=== PATIENT | female | born 1970 | race Caucasian/White ===

== ENCOUNTER 2022-01-12 18:04 | Emergency (ER) | payer OTHER ==
[2022-01-12 19:50] LABS: Absolute Neutrophil Ct (ANC) 4.71 x10^3/uL (1.4-6.9); Basophil (Absolute #) 0.06 x10^3/uL (0-0.4); Eosinophil % 1.9 % (0.00-5.0); Eosinophil (Absolute #) 0.15 x10^3/uL (0-0.5); Hematocrit 38.5 % (35-47); Hemoglobin 12.6 g/dL (12.0-16.0); Lymphocyte (Absolute #) 2.56 x10^3/uL (1.0-4.6); Lymphocytes % 31.6 % (24.0-44.0); Mean Cell Volume 91.4 fL (78-100); Mean Corpuscular Hemoglobin 29.9 pg (26-32); Mean Corpuscular Hgb Concent. 32.7 g/dL (32-36); Mean Platelet Volume 9.9 fL (7.5-11.0); Monocyte (Absolute #) 0.57 x10^3/uL (0.0-1.3); Neutrophil % 58.3 % (36.0-66.0); Platelet Count 314 x10^3/uL (150-450); Red Blood Count 4.21 x10^6/uL (4.1-5.4); Red Cell Distribution Width 11.9 % (11.5-14.0); White Blood Count 8.1 x10^3/uL (4.0-10.5)
[2022-01-12 19:51] LABS: Mucus SLIGHT /HPF (NEGATIVE); WBC 0-2 /HPF (0-5)
[2022-01-12 19:52] LABS: Appearance CLEAR (CLEAR); Bilirubin NEGATIVE (NEGATIVE); Glucose NEGATIVE (NEGATIVE); Ketones NEGATIVE (NEGATIVE); Ph 5.5 (5-6); RBC NEGATIVE Ery/ul (0-5); Specific Gravity <=1.005 (1.005-1.025)
[2022-01-12 19:53] LABS: Nitrite NEGATIVE (NEGATIVE); Protein,Urine Dip NEGATIVE (Negative); Urine Cultured Indicated? NO; Urobilinogen 0.2 mg/dL (0-1)
[2022-01-12 20:03] LABS: Dipstick done @ ? MAIN LAB
[2022-01-12 20:08] LABS: ALBUMIN 4.1 g/dL (3.5-5.0); ANION GAP 11.8 MEQ/L (5-15); BILIRUBIN,TOTAL 0.5 mg/dL (0.2-1.3); Calcium 9.9 mg/dL (8.4-10.2); Creatinine 1 1.33 mg/dL (0.52-1.04); EST GLOMERULAR FILTRATION RATE 44.5 ML/MIN; Potassium 3.9 mmol/L (3.5-5.1); Total Protein 7.1 g/dL (6.3-8.2)
[2022-01-12 20:20] VITALS: O2SAT 98
--- NOTE | 2022-01-12 20:38 | ERPHSYRPT ---
- History of Present Illness Historian: patient Exam Limitations: no limitations Patient Subjective Stated Complaint: pt states "My stomach has been hurting really intene the past 3 days. I have IBS so I don't know if it that or not. about 3 weeks ago I passed what looked like a worm in my stool." Triage Nursing Assessment: Pt ambulatory to bed by self, pt alert and oriented x3, pt c/o diffuse abd pain x3 days, pt has hx of IBS but states "It doesn't feel like that kind of pain." pt mentioned about 3 weeks ago she passed stool and said it looked like it had a "Worm" in it, pt's last BM was two days ago with no abnormalities, pt slightly hypertensive in triage, skin pwd, other vitals wnl Physician History: 51 yo wf w periumbilical pain x 3 days. Pain is 8/10, sharp, and wo radiation. She has had nausea wo vomiting/diarrhea/melena/hemat ochezia/fever/dysuria/hematuria. Pt has a h/o IBS w constipation but has had good BM's. Timing/Duration: other (3 days) Activities at Onset: rest Quality: sharpness Abdominal Pain Onset Location: periumbilical Pain Radiation: no radiation Severity of Pain-Max: severe Severity of Pain-Current: severe Associated Symptoms: denies symptoms, nausea Previous symptoms: same symptoms as today Allergies/Adverse Reactions: pravastatin Allergy (Verified 08/28/15 00:43) steriods Allergy (Uncoded 01/12/22 19:18) IV contrast dye Adverse Reaction (Uncoded 08/28/15 01:05) due to kidney disease Home Medications: Levothyroxine Sodium [Synthroid] 75 mcg PO DAILY 11/02/13 [History] Cyanocobalamin (Vitamin B-12) [Vitamin B-12] 1 cartridge IM UD 03/01/15 [History] Bisacodyl 5 mg [Dulcolax 5 mg] 10 mg PO .2-3DAYS 08/17/16 [History] Diphenhydramine HCl 25 mg [Benadryl 25 mg Capsule] 50 mg PO HS 08/17/16 [History] Hydrocodone/Acetaminophen [Iraan 7.5-325 Tablet] 1 each PO Q6-8HPRN PRN 08/17/16 [History] Potassium Chloride 7.5 meq PO DAILY 08/22/17 [History] Ezetimibe 10 mg [Zetia 10 MG] 10 mg PO DAILY 09/25/17 [History] Hx Tetanus, Diphtheria Vaccination/Date Given: Yes Hx Influenza Vaccination/Date Given: No Hx Pneumococcal Vaccination/Date Given: No Immunizations Up to Date: Yes Travel Risk - International Travel Have you traveled outside of the country in past 3 weeks: No - Coronavirus Screening Are you exhibiting any of the following symptoms?: No Close contact with a COVID-19 positive Pt in past 14-21 Days: No - Vaccine Status Have you recieved a Covid-19 vaccination: No - Review of Systems Constitutional: No Symptoms Eyes: No Symptoms Ears, Nose, & Throat: No Symptoms Respiratory: No Symptoms Cardiac: No Symptoms Abdominal/Gastrointestinal: No Symptoms, Abdominal Pain, Nausea, No Vomiting, No Diarrhea, No Constipation Genitourinary Symptoms: No Symptoms Musculoskeletal: No Symptoms Skin: No Symptoms Neurological: No Symptoms Psychological: No Symptoms Endocrine: No Symptoms Hematologic/Lymphatic: No Symptoms Immunological/Allergic: No Symptoms - Past Medical History Pertinent Past Medical History: Yes Neurological History: No Pertinent History ENT History: No Pertinent History Cardiac History: High Cholesterol Respiratory History: Asthma Endocrine Medical History: Hypothyroidism Musculoskeletal History: Arthritis, Fibromyalgia GI Medical History: No Pertinent History, Irritable Bowel History: Renal Disease Psycho-Social History: Anxiety, Bipolar, Depression Female Reproductive Disorders: No Pertinent History Other Medical History: Mitral valve prolapse (mild) - Past Surgical History Past Surgical History: Yes Neuro Surgical History: No Pertinent History Cardiac: No Pertinent History Respiratory: No Pertinent History Gastrointestinal: Cholecystectomy Genitourinary: No Pertinent History Musculoskeletal: No Pertinent History Female Surgical History: Hysterectomy, Tubal Ligation Other Surgical History: THYROIDECTOMY IN 2003 - Social History Smoking Status: Never smoker How long have you smoked: 30 years Exposure to second hand smoke: Yes Drug Use: none Patient Lives Alone: No Significant Family History: no pertinent family hx - Nursing Vital Signs Nursing Vital Signs: Initial Vital Signs Temperature 98.7 F 01/12/22 19:19 Pulse Rate 79 01/12/22 19:19 Respiratory Rate 18 01/12/22 19:19 Blood Pressure 131/94 01/12/22 19:19 O2 Sat by Pulse Oximetry 99 01/12/22 19:19 Pain Scale Pain Intensity 4 Mildly hypertensive - Physical Exam General Appearance: no apparent distress Eye Exam: PERRL/EOMI, eyes nml inspection Ears, Nose, Throat Exam: normal ENT inspection, TMs normal, pharynx normal, moist mucous membranes Neck Exam: normal inspection, non-tender, supple, full range of motion, No meningismus, No mass, No Brudzinski, No Kernig's Respiratory Exam: normal breath sounds, lungs clear, airway intact Cardiovascular Exam: regular rate/rhythm, normal heart sounds, normal peripheral pulses, capillary refill <2 sec, No murmur Gastrointestinal/Abdomen Exam: soft, normal bowel sounds, tenderness (Moderate periumbilical TTP wo guarding or rebound) Back Exam: normal inspection, normal range of motion, No CVA tenderness Extremity Exam: normal inspection, normal range of motion Neurologic Exam: alert, oriented x 3, cooperative, 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, normal mood/affect, nml cerebellar function, nml station & gait, sensation nml Skin Exam: normal color, warm, dry, No rash Lymphatic Exam: No adenopathy SpO2 Interpretation: normal SpO2: 98 O2 Delivery: Room Air - Course Nursing assessment & vital signs reviewed: Yes - CT Exams Abdomen/Pelvis CT Interpretation: Discussed w/radiologist (2.5cm calcified R renal mass) Ordered Tests: Active Orders 24 hr Category Date Time Status ABDOMEN AND PELVIS W/0 CONTRAS [CT] Stat Exams 01/12/22 20:37 Taken AMYLASE Stat Lab 01/12/22 19:46 Completed CBC W DIFF Stat Lab 01/12/22 19:46 Completed CMP Stat Lab 01/12/22 19:46 Completed LIPASE Stat Lab 01/12/22 19:46 Completed TROPONIN Q3H Lab 01/12/22 19:46 Completed UA W/RFX CULTURE Stat Lab 01/12/22 19:42 Completed Medication Summary Discontinued Medications Generic Name Dose Route Start Last Admin Trade Name Freq PRN Reason Stop Dose Admin Fentanyl Citrate 50 mcg 01/12/22 20:36 01/12/22 20:47 Fentanyl Citrate 100 Mcg/2 Ml* Vial IV 01/12/22 20:37 50 mcg STAT ONE Administration Fentanyl Citrate Confirm 01/12/22 20:46 Fentanyl Citrate 100 Mcg/2 Ml* Vial Administered 01/12/22 20:47 Dose 100 mcg .ROUTE .STK-MED ONE Ondansetron HCl 4 mg 01/12/22 20:37 01/12/22 20:47 Ondansetron Hcl 4 Mg/2 Ml Vial IV 01/12/22 20:38 4 mg STAT ONE Administration Ondansetron HCl Confirm 01/12/22 20:45 Ondansetron Hcl 4 Mg/2 Ml Vial Administered 01/12/22 20:46 Dose 4 mg .ROUTE .STK-MED ONE Lab/Rad Data: Laboratory Result Diagrams 01/12/22 19:46 01/12/22 19:46 Laboratory Results 01/12/22 01/12/22 01/12/22 Range/Units 19:46 19:46 19:46 WBC 8.1 (4.0-10.5) x10^3/uL RBC 4.21 (4.1-5.4) x10^6/uL Hgb 12.6 (12.0-16.0) g/dL Hct 38.5 (35-47) % MCV 91.4 (78-100) fL MCH 29.9 (26-32) pg MCHC 32.7 (32-36) g/dL RDW 11.9 (11.5-14.0) % Plt Count 314 (150-450) x10^3/uL MPV 9.9 (7.5-11.0) fL Gran % 58.3 (36.0-66.0) % Immature Gran % (Auto) 0.5 H (0.00-0.4) % Nucleat RBC Rel Count 0.0 (0.00-0.1) % Eos # (Auto) 0.15 (0-0.5) x10^3/uL Immature Gran # (Auto) 0.04 H (0.00-0.03) x10^3u/L Absolute Lymphs (auto) 2.56 (1.0-4.6) x10^3/uL Absolute Monos (auto) 0.57 (0.0-1.3) x10^3/uL Absolute Nucleated RBC 0.00 (0.00-0.01) x10^3u/L Lymphocytes % 31.6 (24.0-44.0) % Monocytes % 7.0 (0.0-12.0) % Eosinophils % 1.9 (0.00-5.0) % Basophils % 0.7 (0.0-0.4) % Absolute Granulocytes 4.71 (1.4-6.9) x10^3/uL Basophils # 0.06 (0-0.4) x10^3/uL Sodium 140 (137-145) mmol/L Potassium 3.9 (3.5-5.1) mmol/L Chloride 107 (98-107) mmol/L Carbon Dioxide 25 (22-30) mmol/L Anion Gap 11.8 (5-15) MEQ/L BUN 14 (7-17) mg/dL Creatinine 1.33 H (0.52-1.04) mg/dL Estimated GFR 44.5 ML/MIN Glucose 107 H (74-106) mg/dL Calcium 9.9 (8.4-10.2) mg/dL Total Bilirubin 0.50 (0.2-1.3) mg/dL AST 25 (14-36) U/L ALT 14 (0-35) U/L Alkaline Phosphatase 51 (38-126) U/L Troponin I < 0.012 (0.000-0.034) ng/mL Serum Total Protein 7.1 (6.3-8.2) g/dL Albumin 4.1 (3.5-5.0) g/dL Amylase 72 (30-110) U/L Lipase 121 (23-300) U/L Urinalys Dipstick Clnc Urine Color (YELLOW) Urine Appearance (CLEAR) Urine pH (5-6) Ur Specific Atkinson (1.005-1.025) POC Urine Protein Conf (Negative) Urine Ketones (NEGATIVE) Urine Nitrite (NEGATIVE) Urine Bilirubin (NEGATIVE) Urine Urobilinogen (0-1) mg/dL Urine Leukocytes (NEGATIVE) Urine WBC (Auto) (0-5) /HPF Urine RBC (0-5) Nathaniel/ul Urine Mucus (Auto) (NEGATIVE) /HPF Ur Culture Indicated? Urine Glucose (NEGATIVE) mg/dL 01/12/22 Range/Units 19:42 WBC (4.0-10.5) x10^3/uL RBC (4.1-5.4) x10^6/uL Hgb (12.0-16.0) g/dL Hct (35-47) % MCV (78-100) fL MCH (26-32) pg MCHC (32-36) g/dL RDW (11.5-14.0) % Plt Count (150-450) x10^3/uL MPV (7.5-11.0) fL Gran % (36.0-66.0) % Immature Gran % (Auto) (0.00-0.4) % Nucleat RBC Rel Count (0.00-0.1) % Eos # (Auto) (0-0.5) x10^3/uL Immature Gran # (Auto) (0.00-0.03) x10^3u/L Absolute Lymphs (auto) (1.0-4.6) x10^3/uL Absolute Monos (auto) (0.0-1.3) x10^3/uL Absolute Nucleated RBC (0.00-0.01) x10^3u/L Lymphocytes % (24.0-44.0) % Monocytes % (0.0-12.0) % Eosinophils % (0.00-5.0) % Basophils % (0.0-0.4) % Absolute Granulocytes (1.4-6.9) x10^3/uL Basophils # (0-0.4) x10^3/uL Sodium (137-145) mmol/L Potassium (3.5-5.1) mmol/L Chloride (98-107) mmol/L Carbon Dioxide (22-30) mmol/L Anion Gap (5-15) MEQ/L BUN (7-17) mg/dL Creatinine (0.52-1.04) mg/dL Estimated GFR ML/MIN Glucose (74-106) mg/dL Calcium (8.4-10.2) mg/dL Total Bilirubin (0.2-1.3) mg/dL AST (14-36) U/L ALT (0-35) U/L Alkaline Phosphatase (38-126) U/L Troponin I (0.000-0.034) ng/mL Serum Total Protein (6.3-8.2) g/dL Albumin (3.5-5.0) g/dL Amylase (30-110) U/L Lipase (23-300) U/L Urinalys Dipstick Clnc MAIN LAB Urine Color YELLOW (YELLOW) Urine Appearance CLEAR (CLEAR) Urine pH 5.5 (5-6) Ur Specific Atkinson <=1.005 (1.005-1.025) POC Urine Protein Conf NEGATIVE (Negative) Urine Ketones NEGATIVE (NEGATIVE) Urine Nitrite NEGATIVE (NEGATIVE) Urine Bilirubin NEGATIVE (NEGATIVE) Urine Urobilinogen 0.2 (0-1) mg/dL Urine Leukocytes NEGATIVE (NEGATIVE) Urine WBC (Auto) 0-2 (0-5) /HPF Urine RBC NEGATIVE (0-5) Nathaniel/ul Urine Mucus (Auto) SLIGHT (NEGATIVE) /HPF Ur Culture Indicated? NO Urine Glucose NEGATIVE (NEGATIVE) mg/dL - Progress Progress: improved Progress Note: 01/12/22 21:40 50mcg IV Fentanyl/4mg IV zofran w mild improvement CT results reviewed w pt and will follow up with her glass scullion about possible mass 01/12/22 21:42 Pt refused further pain meds Counseled pt/family regarding: lab results, diagnosis, need for follow-up, rad results - Departure Departure Disposition: Home Clinical Impression: Abdominal pain, Right kidney mass Condition: Stable Critical Care Time: No Referrals: EMELI VEGA [Primary Care Provider] - Follow up/PCP as directed Instructions: Severe Abdominal Pain, Adult (DC) Additional Instructions: Follow up with your family MD about abdominal pain Also follow up with your kidney doctor about right renal mass Return to ER for increasing pain or temperature greater than 100.5
[2022-01-12] MEDS ORDERED: Zofran 4 MG/2 ML VIAL ONE (20:45)
[2022-01-12] MEDS ORDERED: SUBLIMAZE 100 MCG/2 ML ONE (20:46)
[2022-01-12] MEDS: SUBLIMAZE 100 MCG/2 ML IV ONE (20:47)
[2022-01-12] MEDS: Zofran 4 MG/2 ML VIAL IV ONE (20:47)
[2022-01-12 22:16] VITALS: BP 130/81; PULSE 68
--- NOTE | 2022-01-13 09:03 | XRAY ---
Indication: Bilateral abdomen pain. Nausea. Multiple contiguous axial images obtained through the abdomen and pelvis without contrast. Comparison: None Lung bases demonstrate small right lower lobe calcified granuloma. No infiltrate or effusion. Heart not enlarged. Noncontrasted stomach and bowel loops appear nonobstructed with normal air-filled appendix. Previous cholecystectomy. No free fluid/air. Incidental tiny splenic calcified granuloma. Right mid to lower kidney demonstrates a 2.4 x 2.5 x 2.9 cm slightly dense mass with microcalcification worrisome for malignancy. No hydronephrosis or hydroureter. Remaining liver, pancreas, spleen, adrenal glands, kidneys, ureters, and bladder are unremarkable for noncontrast exam. Minimal aortoiliac calcifications without AAA. Osseous structures intact with minimal degenerative changes throughout the spine. Impression: 1. Suspicious right renal mass as detailed worrisome for malignancy. CT or MRI with contrast exam may yield further information. 2. Incidental degenerative spondylosis and old granulomatous disease.
== END 2022-01-12 22:30 | disposition home or self-care (01) ==
LOC: ED 18:04
DX: N28.89 Other specified disorders of kidney and ureter (principal); R10.33 Periumbilical pain; K58.1 Irritable bowel syndrome with constipation; E78.5 Hyperlipidemia, unspecified; Z79.899 Other long term (current) drug therapy; Z28.310 Unvaccinated for COVID-19
CPT/HCPCS: 36415; 74176; 80053; 81015; 82150; 83690; 84484; 85025; 96374; 96375; 99284; J2405; J3010